=== PATIENT | male | born 1980 | race Caucasian/White ===

== ENCOUNTER 2018-12-12 18:24 | Emergency (ER) | payer MEDICAID ==
[~2018-12-12] VITALS: Ht 182.8 cm; Wt 127.0 kg
[~2018-12-12 18:24] MED LIST: AMOXICILLIN500 MG PO; AUGMENTIN 875875 MG PO; BUSPAR5 MG PO; DICLOFENAC POTA50 MG PO; EC NAPROSYN500 MG PO; HYDROCODONE BIT1 T11 PO; LOMOTIL 0.025 M1 TA1 PO; MOTRIN800 MG PO; NAPROSYN250 MG PO; NORCO 325 MG-51 TAB PO; NORFLEX100 MG PO; PENICILLIN VK500 MG PO; PROZAC20 MG PO; Peridex 473 ML473 ML PO; REMERON15 MG PO; ULTRAM50 MG PO; ZOFRAN ODT4 MG SL; ZOLOFT100 MG PO
[2018-12-12] MEDS ORDERED: IBU800 MG PO (18:58)
[2018-12-12] MEDS ORDERED: DOXYCYCLINE100 M3 PO (18:58)
== END 2018-12-12 19:10 | disposition home or self-care (01) ==
LOC: ED 18:24
DX: L02.416 Cutaneous abscess of left lower limb (principal); Z88.2 Allergy status to sulfonamides